=== PATIENT | female | born 1960 | race Caucasian/White ===

== ENCOUNTER 2024-03-05 14:36 | Day surgery (SDC) | payer OTHER, SELFPAY ==
--- NOTE | 2024-03-05 | US_ITS ---
[address] [address] Patient Name: HUGO MONTANEZ MRN: [id number] date: 1960 Sex: F Assigned Patient Location: US Current Patient Location: US Accession/Order Number: [id number] Exam Date: 03/05/2024 14:50 Report Date: 03/05/2024 15:58 At the request of: NEENA SHELDON Procedure: US biopsy FNA add lesion EXAMINATION: US biopsy FNA add lesion, US biopsy thyroid HISTORY: Thyroid nodule COMPARISON: Ultrasound thyroid 12/28/2023 TECHNIQUE: After obtaining informed consent, ultrasound-guided fine needle aspiration was performed in the usual sterile manner. FINDINGS: IMAGING: Ultrasound. BIOPSY NEEDLE: 25-gauge; 3 separate passes within both lesions. LOCATION: Mid left thyroid lobe, 2.3 x 2.2 x 1.8 cm heterogeneous mass. Inferior left thyroid lobe, 3.2 x 2.8 x 2.3 cm heterogeneous mass. SPECIMEN TYPE: Cellular tissue. LOCAL ANESTHETIC: Buffered Xylocaine. COMPLICATIONS: None. LABORATORY: Prepared slide smears and washings for cell block evaluation. OTHER: Negative. PATHOLOGY: Pending. An addendum will be added when results are available. US/US biopsy FNA add lesion IMPRESSION: 1. Uneventful ultrasound guided fine needle aspiration (FNA). 2. Pathology results are pending. Electronically authenticated by: JAMMIE JUNIOR Date: 03/05/2024 15:58
--- NOTE | 2024-03-05 14:47 | US_ITS ---
[address] [address] Patient Name: HUGO MONTANEZ MRN: [id number] date: 1960 Sex: F Assigned Patient Location: US Current Patient Location: US Accession/Order Number: [id number] Exam Date: 03/05/2024 14:50 Report Date: 03/05/2024 15:58 At the request of: NEENA SHELDON Procedure: US biopsy thyroid EXAMINATION: US biopsy FNA add lesion, US biopsy thyroid HISTORY: Thyroid nodule COMPARISON: Ultrasound thyroid 12/28/2023 TECHNIQUE: After obtaining informed consent, ultrasound-guided fine needle aspiration was performed in the usual sterile manner. FINDINGS: IMAGING: Ultrasound. BIOPSY NEEDLE: 25-gauge; 3 separate passes within both lesions. LOCATION: Mid left thyroid lobe, 2.3 x 2.2 x 1.8 cm heterogeneous mass. Inferior left thyroid lobe, 3.2 x 2.8 x 2.3 cm heterogeneous mass. SPECIMEN TYPE: Cellular tissue. LOCAL ANESTHETIC: Buffered Xylocaine. COMPLICATIONS: None. LABORATORY: Prepared slide smears and washings for cell block evaluation. OTHER: Negative. PATHOLOGY: Pending. An addendum will be added when results are available. US/US biopsy thyroid IMPRESSION: 1. Uneventful ultrasound guided fine needle aspiration (FNA). 2. Pathology results are pending. Electronically authenticated by: JAMMIE JUNIOR Date: 03/05/2024 15:58
[2024-03-05 15:00] VITALS: BP 115/74; PULSE 70; O2SAT 97
[2024-03-05] MEDS: LIDOCAINE HCL 10 ML, SODIUM BICARBONATE 1 MEQ INJ (15:20)
--- NOTE | 2024-03-05 16:02 | SUR.PREOP ---
01/17/24 Per Shonna Pt made aware of procedure, date, time, and prep.
== END 2024-03-05 15:50 | disposition home or self-care (01) ==
LOC: US 14:40
PROVIDERS: Radiology Diagnostic Radiology; PCP Family Medicine; Visit Provider Otolaryngology
DX: E04.2 Nontoxic multinodular goiter (principal)
CPT/HCPCS: 10005; 10006; 88173